=== PATIENT | male | born 1985 | race Caucasian/White ===

== ENCOUNTER 2016-07-20 18:15 | Emergency (ER) | payer BC ==
[~2016-07-20] VITALS: Ht 172.7 cm; Wt 79.8 kg
[2016-07-20] MEDS ORDERED: ASPIRIN 81 MG CHEW TABLET PO ONE (19:30)
[2016-07-20] MEDS ORDERED: NS 1,000 ML IV ONE (19:30)
[2016-07-20 19:32] LABS: BASO % 0.3 % (0.0-1.0); EOS # 0.1 K/mm3 (0.0-0.50); EOS % 1.1 % (0.0-3.0); LARGE UNSTAINED CELL # 0.2 K/mm3 (0.0-0.4); LARGE UNSTAINED CELL % 1.9 % (0.0-4.0); LYMPH # 1.8 K/mm3 (1.5-4.5); LYMPH % 19.5 % (24.0-44.0); MEAN CORPUSCULAR HEMOGLOBIN 31.2 pg (27.0-33.0); MEAN CORPUSCULAR HGB CONC 34.5 g/dl (32.0-36.5); MEAN CORPUSCULAR VOLUME 90.4 fl (80.0-96.0); MONO # 0.5 K/mm3 (0.0-0.8); MONO % 5.6 % (0.0-5.0); NEUTROPHILS # 6.1 K/mm3 (1.8-7.7); NEUTROPHILS % 71.5 % (36.0-66.0); PLATELET COUNT, AUTOMATED 224 k/mm3 (150-450); RED CELL DISTRIBUTION WIDTH 12.4 % (11.5-14.5); WHITE BLOOD COUNT 8.5 K/mm3 (4.0-10.0)
[2016-07-20] MEDS: NITROGLYCERIN 0.4 MG SUBL TABLET SL PRN ×3 (19:34→23:53)
[2016-07-20 19:43] LABS: ANION GAP 5 MEQ/L (8-16); BLOOD UREA NITROGEN 15 MG/DL (7-18); CALCIUM LEVEL 9.1 MG/DL (8.5-10.1); CARBON DIOXIDE LEVEL 28 MEQ/L (21-32); CHLORIDE LEVEL 107 MEQ/L (98-107); CREATININE FOR GFR 0.91 MG/DL (0.70-1.30); GLOMERULAR FILTRATION RATE > 60.0 (>60); GLUCOSE, FASTING 92 MG/DL (70-105); POTASSIUM SERUM 3.8 MEQ/L (3.5-5.1); SODIUM LEVEL 140 MEQ/L (136-145)
--- NOTE | 2016-07-20 20:01 | REP ---
Chest two views HISTORY: Chest pain Comparison: 12/23/2015 The lungs are clear. The cardiac silhouette is enlarged. The pulmonary vasculature is normal in appearance. The bony structure is intact. There is scoliosis of the upper thoracic spine convex to the left and mid and lower thoracic spine convex to the right. A prosthetic heart valve and epicardial leads are present. IMPRESSION: Cardiomegaly. Signed by Donnell Collins MD 07/20/2016 07:52 P
[2016-07-20] MEDS ORDERED: MORPHINE 4 MG/ML 1ML SYRINGE IV ONE (20:45)
[2016-07-20] MEDS ORDERED: KETOROLAC 30 MG/ML VIAL (J1885) IV ONE (23:15)
[2016-07-21 00:20] VITALS: BP 151/70
[2016-07-21] MEDS: NITROGLYCERIN 0.4 MG SUBL TABLET SL PRN (00:20)
[2016-07-21 01:49] VITALS: BP 118/72
--- NOTE | 2016-07-22 12:10 | ECGEPIP ---
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
== END 2016-07-21 01:54 | disposition home or self-care (01) ==
LOC: M ED 19:36
DX: R07.89 Other chest pain (principal); I51.7 Cardiomegaly; R94.31 Abnormal electrocardiogram [ECG] [EKG]
CPT/HCPCS: 71020; 80048; 82550; 82553; 85025; 85379; 93005; 93041; 94760; 96361; 96374; 96375; 99285; J1885

== ENCOUNTER 2016-10-12 13:14 | Emergency (ER) | payer BC ==
[~2016-10-12] VITALS: Ht 172.7 cm; Wt 77.2 kg
[2016-10-12 14:26] LABS: ALBUMIN/GLOBULIN RATIO 1.11 (1.00-1.93); ALKALINE PHOSPHATASE 72 U/L (45-117); ALT/SGPT 21 U/L (12-78); ANION GAP 7 MEQ/L (8-16); AST/SGOT 16 U/L (15-37); BILIRUBIN,DIRECT 0.2 MG/DL (0.0-0.2); BILIRUBIN,TOTAL 0.9 MG/DL (0.2-1.0); BLOOD UREA NITROGEN 13 MG/DL (7-18); CALCIUM LEVEL 9.2 MG/DL (8.5-10.1); CARBON DIOXIDE LEVEL 28 MEQ/L (21-32); CHLORIDE LEVEL 106 MEQ/L (98-107); CREATININE FOR GFR 1.03 MG/DL (0.70-1.30); GLOMERULAR FILTRATION RATE > 60.0 (>60); GLUCOSE, FASTING 126 MG/DL (70-105); POTASSIUM SERUM 4.2 MEQ/L (3.5-5.1); SODIUM LEVEL 141 MEQ/L (136-145); TOTAL PROTEIN 7.6 GM/DL (6.4-8.2)
[2016-10-12 14:30] LABS: BASO % 0.4 % (0.0-1.0); EOS # 0.1 K/mm3 (0.0-0.50); EOS % 2.3 % (0.0-3.0); LARGE UNSTAINED CELL # 0.1 K/mm3 (0.0-0.4); LARGE UNSTAINED CELL % 2.2 % (0.0-4.0); LYMPH # 1.6 K/mm3 (1.5-4.5); LYMPH % 25.8 % (24.0-44.0); MEAN CORPUSCULAR HEMOGLOBIN 32.3 pg (27.0-33.0); MEAN CORPUSCULAR HGB CONC 35.6 g/dl (32.0-36.5); MEAN CORPUSCULAR VOLUME 90.7 fl (80.0-96.0); MONO # 0.4 K/mm3 (0.0-0.8); MONO % 6.8 % (0.0-5.0); NEUTROPHILS # 3.5 K/mm3 (1.8-7.7); NEUTROPHILS % 62.6 % (36.0-66.0); PLATELET COUNT, AUTOMATED 206 k/mm3 (150-450); RED CELL DISTRIBUTION WIDTH 12.4 % (11.5-14.5); WHITE BLOOD COUNT 5.6 K/mm3 (4.0-10.0)
--- NOTE | 2016-10-12 14:51 | REP ---
CHEST X-RAY: TWO VIEWS. HISTORY: Chest pain. COMPARISON: Chest x-ray 07/20/2016. FINDINGS: Patient is status post median sternotomy and pulmonary valve replacement. Pacemaker leads are seen. Heart is mildly enlarged, unchanged. Pleural angles are sharp. Pulmonary vasculature is not increased. There is complex scoliosis in the thoracic spine. No other bony abnormality is seen. IMPRESSION: Status post pulmonic valve replacement via median sternotomy. Cardiomegaly. Otherwise, no acute disease. Signed by Girish Knight MD 10/12/2016 05:05 P
[2016-10-12 15:23] LABS: MAGNESIUM LEVEL 2.2 MG/DL (1.8-2.4)
[2016-10-12] MEDS ORDERED: ISOVUE-370 76% 100ML VIAL (Q9967) As Ordered ONE (16:03)
--- NOTE | 2016-10-12 16:40 | REP ---
CT thoracic aortic angiogram: With IV contrast. History: Question thoracic aortic aneurysm. Comparison studies: 10/03/2012. Comparison made with today's chest x-ray. Contrast dose: 100 mL of Isovue [address] technique: Helical scanning is acquired and overlapping 1.5 mm and contiguous 3 mm axial images are reformatted. In addition, a 3-D work station is deployed to generate thick slab maximum intensity projection images in sagittal and coronal imaging projections. CT pulmonary angiographic findings: There is good opacification of the thoracic aorta and it is normal in contour and homogeneous in texture. No dissection is seen. The ascending aortic root measures 4.5 cm and is therefore felt to be dilated. This it is unchanged from the 2013 prior study. The patient is status post pulmonary valve replacement. There is no evidence of pulmonary embolism. The central pulmonary arteries are slightly dilated as on previous study. Right atrium appears prominent also unchanged. No evidence of pleural or pericardial effusion. No hilar or mediastinal mass or adenopathy is seen. The lung [place] are unremarkable. Impression: Status post pulmonic valve replacement. Some dilation of the right atrium and pulmonary arteries is seen unchanged. The aortic root is somewhat dilated, 4.5 cm, but unchanged from 2013. There is no evidence of thoracic aneurysm or dissection. No CT evidence of pulmonary embolus. Signed by Girish Knight MD 10/12/2016 05:11 P
[2016-10-12 16:50] VITALS: BP 117/85
--- NOTE | 2016-10-14 05:56 | ECGEPIP ---
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
--- NOTE | 2016-10-14 05:58 | ECGEPIP ---
Stationary ECG Study 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
== END 2016-10-12 18:06 | disposition home or self-care (01) ==
LOC: M ED 13:14
DX: I48.0 Paroxysmal atrial fibrillation (principal); Z87.74 Personal history of (corrected) congenital malformations of heart and circulatory system; I51.7 Cardiomegaly; R94.31 Abnormal electrocardiogram [ECG] [EKG]; Z82.49 Family history of ischemic heart disease and other diseases of the circulatory system
CPT/HCPCS: 71020; 71275; 80048; 80076; 82550; 82553; 83690; 83735; 84443; 85025; 93005; 93041; 94760; 99285; Q9967

== ENCOUNTER → 2016-12-28 | Outpatient (CLI) | payer BC ==
[2016-12-28 13:31] LABS: DIGOXIN LEVEL 0.3 NG/ML (0.5-2.0)
== END ==
LOC: M WUC 10:05
PROVIDERS: ATTEND Nurse Practitioner Family
DX: I48.3 Typical atrial flutter (principal); Z13.220 Encounter for screening for lipoid disorders

== ENCOUNTER 2017-02-15 18:55 | Emergency (ER) | payer BC ==
[2017-02-15] MEDS: NS 1,000 ML IV (20:12)
[2017-02-15 20:43] LABS: ANION GAP 7 MEQ/L (8-16); BLOOD UREA NITROGEN 19 MG/DL (7-18); CALCIUM LEVEL 9.3 MG/DL (8.5-10.1); CARBON DIOXIDE LEVEL 28 MEQ/L (21-32); CHLORIDE LEVEL 105 MEQ/L (98-107); CREATININE FOR GFR 0.99 MG/DL (0.70-1.30); DIGOXIN LEVEL 0.1 NG/ML (0.5-2.0); GLOMERULAR FILTRATION RATE > 60.0 (>60); GLUCOSE, FASTING 111 MG/DL (70-105); MAGNESIUM LEVEL 2.2 MG/DL (1.8-2.4); POTASSIUM SERUM 3.5 MEQ/L (3.5-5.1); SODIUM LEVEL 140 MEQ/L (136-145)
[2017-02-15] MEDS ORDERED: ISOVUE-370 76% 100ML VIAL (Q9967) As Ordered (21:23)
[2017-02-15] MEDS: DIGOXIN 0.25 MG TAB PO ×2 (21:32→22:44)
[2017-02-15 22:38] LABS: CK-MB VALUE MASS 1.7 NG/ML (0.0-3.6); CPK CREATINE PHOSPHOKINASE 205 U/L (39-308); MB/CK RELATIVE INDEX 0.82 (< OR =4); TROPONIN I < 0.02 NG/ML (< 0.10)
== END 2017-02-15 23:13 | disposition home or self-care (01) ==
LOC: M ED 18:55
DX: I49.02 Ventricular flutter (principal); I45.10 Unspecified right bundle-branch block; I44.1 Atrioventricular block, second degree; I49.3 Ventricular premature depolarization; Z91.14 Patient's other noncompliance with medication regimen; Q21.3 Tetralogy of Fallot; Z95.2 Presence of prosthetic heart valve; Z79.01 Long term (current) use of anticoagulants
CPT/HCPCS: Q9967

== ENCOUNTER 2018-09-27 11:22 | Emergency (ER) | payer BC ==
[~2018-09-27] VITALS: Ht 175.3 cm; Wt 77.3 kg
[~2018-09-27 11:22] MED LIST: DIGO25TA; XARE10TA PO
[2018-09-27 12:02] LABS: BASO % 0.6 % (0.0-1.0); EOS # 0.1 10^3/uL (0.0-0.50); EOS % 1.7 % (0.0-3.0); HEMATOCRIT 43.1 % (42.0-52.0); LYMPH # 1.5 10^3/uL (1.5-4.5); LYMPH % 21.7 % (24.0-44.0); MEAN CORPUSCULAR HEMOGLOBIN 31.1 pg (27.0-33.0); MEAN CORPUSCULAR HGB CONC 34.8 g/dl (32.0-36.5); MEAN CORPUSCULAR VOLUME 89.4 fl (80.0-96.0); MONO # 0.6 10^3/uL (0.0-0.8); MONO % 8.7 % (0.0-5.0); NEUTROPHILS # 4.7 10^3/uL (1.8-7.7); NEUTROPHILS % 66.9 % (36.0-66.0); PLATELET COUNT, AUTOMATED 215 10^3/uL (150-450); RED BLOOD COUNT 4.82 10^6/uL (4.30-6.10)
[2018-09-27 12:39] LABS: ALBUMIN 4.1 GM/DL (3.2-5.2); ALT/SGPT 24 U/L (12-78); BILIRUBIN,DIRECT 0.1 MG/DL (0.0-0.2); BILIRUBIN,TOTAL 0.5 MG/DL (0.2-1.0); BLOOD UREA NITROGEN 15 MG/DL (7-18); CARBON DIOXIDE LEVEL 29 MEQ/L (21-32); CHLORIDE LEVEL 107 MEQ/L (98-107); CK-MB VALUE MASS 4.1 NG/ML (<3.6); CPK CREATINE PHOSPHOKINASE 242 U/L (39-308); CREATININE FOR GFR 0.99 MG/DL (0.70-1.30); GLOMERULAR FILTRATION RATE > 60.0 (>60); GLUCOSE, FASTING 103 MG/DL (70-100); LIPASE 68 U/L (73-393); MB/CK RELATIVE INDEX 1.69 (< OR =4); NT-PRO BNP 100 PG/ML (<125); POTASSIUM SERUM 3.9 MEQ/L (3.5-5.1); SODIUM LEVEL 142 MEQ/L (136-145); TOTAL PROTEIN 7.8 GM/DL (6.4-8.2); TROPONIN I < 0.02 NG/ML (< 0.10)
[2018-09-27] MEDS ORDERED: GI COCKTAIL 50ML BTL(HYOSCYAMINE/MAALOX/LIDOCAINE VISCOUS)(1:3:1) PO ONE (12:45)
[2018-09-27] MEDS ORDERED: ISOVUE-370 76% 100ML VIAL (Q9967) As Ordered ONE (12:46)
--- NOTE | 2018-09-27 14:19 | REP ---
REASON: Chest pain. COMPARISON: 10/12/2016, the latest prior. The technique utilized in obtaining the radiograph has magnified the cardiac silhouette and accentuated the interstitial markings. There is cardiomegaly accentuated by technique. No acute patchy parenchymal opacities or pleural effusions have developed. Note is again made of previous median sternotomy and pulmonic valve replacement. There is no change in the osseous structures. IMPRESSION: Cardiomegaly and other findings, but no evidence of acute cardiopulmonary disease. Electronically Signed by Juvenal Mei DO 09/27/2018 03:45 P
--- NOTE | 2018-09-27 14:43 | REP ---
CT pulmonary angiogram: With IV contrast. History: Chest pain. Tetralogy of Fallot. Comparison studies: Comparison chest CT study February 15, 2017. Contrast dose: 75 mL of Isovue [address] technique: Helical scanning is acquired and overlapping 1.5 mm and contiguous 3 mm axial images are reformatted. In addition, maximum intensity projection and multiplanar re-formation images are generated in sagittal and coronal imaging projections. CT pulmonary angiographic findings: Preliminary digital dietitian chief radiograph demonstrates median sternotomy wires and pulmonic valve replacement. There is good opacification of the pulmonary arterial tree. There is no CT evidence of pulmonary embolism. Cardiac enlargement four-chamber enlargement is seen. Aortic arch is left-sided. There is no evidence of pleural or pericardial effusion. No mass or adenopathy is observed. No infiltrate is seen. There is no evidence of infiltrate. Impression: No CT evidence of pulmonary embolus. Cardiomegaly and postoperative changes as previously noted. Electronically Signed by Girish Knight MD 09/27/2018 05:34 P
[2018-09-27] MEDS ORDERED: KETOROLAC 30 MG/ML VIAL (J1885) IV ONE (14:45)
[2018-09-27] MEDS ORDERED: ONDANSETRON 4MG/2ML VIAL (J2405) IV ONE (14:45)
[2018-09-27 16:09] LABS: CK-MB VALUE MASS 3.7 NG/ML (<3.6); CPK CREATINE PHOSPHOKINASE 207 U/L (39-308); MB/CK RELATIVE INDEX 1.79 (< OR =4); TROPONIN I < 0.02 NG/ML (< 0.10)
[2018-09-27 16:30] VITALS: BP 139/92
[2018-09-27] MEDS ORDERED: PRIL20TA2 PO (16:30)
[2018-09-27] MEDS ORDERED: IBUP-1114 PO (16:30)
--- NOTE | 2018-09-28 06:08 | ECGEPIP ---
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
--- NOTE | 2018-09-28 06:11 | ECGEPIP ---
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
== END 2018-09-27 16:49 | disposition home or self-care (01) ==
LOC: M ED 11:22
DX: Q21.3 Tetralogy of Fallot (principal); R07.89 Other chest pain; I45.10 Unspecified right bundle-branch block; I44.4 Left anterior fascicular block; I48.91 Unspecified atrial fibrillation; Z87.891 Personal history of nicotine dependence; I51.7 Cardiomegaly
CPT/HCPCS: 71045; 71275; 80048; 80076; 82550; 82553; 83690; 83880; 84443; 84484; 85025; 93005; 93041; 94760; 96374; 96375; 99285; J1885; J2405; Q9967

== ENCOUNTER 2018-09-28 16:28 | Emergency (ER) | payer BC ==
[~2018-09-28] VITALS: Ht 175.3 cm; Wt 77.3 kg
[~2018-09-28 16:28] MED LIST changes: +IBUP-1114 PO; +PRIL20TA2 PO
[2018-09-28 17:08] LABS: HEMATOCRIT 43.2 % (42.0-52.0); HEMOGLOBIN 15.1 g/dl (13.5-17.5); MEAN CORPUSCULAR HEMOGLOBIN 32.1 pg (27.0-33.0); MEAN CORPUSCULAR VOLUME 91.7 fl (80.0-96.0); PLATELET COUNT, AUTOMATED 220 10^3/uL (150-450); RED BLOOD COUNT 4.71 10^6/uL (4.30-6.10)
[2018-09-28 19:24] LABS: ACETAMINOPHEN LEVEL < 2.0 UG/ML (10.0-30.0); ALBUMIN 4.3 GM/DL (3.2-5.2); ALT/SGPT 23 U/L (12-78); BILIRUBIN,DIRECT 0.2 MG/DL (0.0-0.2); BILIRUBIN,TOTAL 0.7 MG/DL (0.2-1.0); BLOOD UREA NITROGEN 17 MG/DL (7-18); CARBON DIOXIDE LEVEL 25 MEQ/L (21-32); CHLORIDE LEVEL 107 MEQ/L (98-107); CREATININE FOR GFR 1.08 MG/DL (0.70-1.30); ETHYL ALCOHOL (ETHANOL) < 0.003 % (0.000-0.010); GLOMERULAR FILTRATION RATE > 60.0 (>60); GLUCOSE, FASTING 101 MG/DL (70-100); POTASSIUM SERUM 3.9 MEQ/L (3.5-5.1); SALICYLATE LEVEL < 1.7 MG/DL (5.0-30.0); SODIUM LEVEL 140 MEQ/L (136-145); THYROID STIMULATING HORMONE 0.764 uIU/ML (0.358-3.740); TOTAL PROTEIN 7.7 GM/DL (6.4-8.2)
[2018-09-28 21:20] LABS: AMPHETAMINES LEVEL URINE NEGATIVE (NEGATIVE); BARBITURATES URINE NEGATIVE (NEGATIVE); BENZODIAZEPINES URINE NEGATIVE (NEGATIVE); CANNABINOIDS URINE NEGATIVE (NEGATIVE); COCAINE METABOLITE URINE NEGATIVE (NEGATIVE); METHADONE URINE NEGATIVE (NEGATIVE); OPIATES URINE NEGATIVE (NEGATIVE); PHENCYCLIDINE URINE NEGATIVE (NEGATIVE)
[2018-09-28 21:30] VITALS: BP 121/85
== END 2018-09-28 22:26 | disposition home or self-care (01) ==
LOC: M ED 17:28
DX: F43.20 Adjustment disorder, unspecified (principal); Z79.899 Other long term (current) drug therapy
CPT/HCPCS: 36415; 80048; 80076; 80307; 84443; 85027; 99284; G0480